=== PATIENT | male | born 1955 | race Caucasian/White ===

== ENCOUNTER 2020-07-30 10:30 | Inpatient (IN) | payer MEDICARE, OTHER ==
[~2020-07-30] VITALS: Ht 185.4 cm; Wt 98.4 kg
[~2020-07-30 10:30] MED LIST: IBU600 MG PO; KEFLEX500 MG PO; KEPPRA500 MG PO
[2020-07-30 12:19] LABS: HEMOGLOBIN 13.5 gm/dl (14.0-17.5); RED BLOOD COUNT 3.82 M/UL (4.20-5.50); WHITE BLOOD COUNT 3.7 K/UL (4.5-11.0)
[2020-07-30] MEDS ORDERED: ROPINIROLE HCL3 MG PO (15:06)
[2020-07-30] MEDS ORDERED: CYANOCOBAL1000 MCG/1 INJ (15:07)
[2020-07-30] MEDS ORDERED: OMEPRAZOLE20 MG PO (15:07)
[2020-07-30] MEDS ORDERED: TEGRETOL200 MG PO (15:08)
[2020-07-30] MEDS ORDERED: PRAVACHOL40 MG PO (15:08)
[2020-07-30] MEDS ORDERED: ESCITALOPRAM OXA5 MG PO (15:08)
[2020-07-30] MEDS ORDERED: VITAMIN D21250 MCG PO (15:09)
[2020-07-30] MEDS ORDERED: HYDROCODON-ACE1 EAC6 PO (15:09)
[2020-07-30] MEDS ORDERED: COZAAR100 MG PO (15:10)
[2020-07-30] MEDS ORDERED: PLAVIX 75 MG TA75 MG PO (15:10)
[2020-07-30] MEDS ORDERED: AMLODIPINE BESYL5 MG PO (15:10)
[2020-07-30] MEDS ORDERED: CYMBALTA60 MG PO (15:11)
[2020-07-31 04:06] LABS: HEMOGLOBIN 12.4 gm/dl (14.0-17.5); RED BLOOD COUNT 3.56 M/UL (4.20-5.50); WHITE BLOOD COUNT 3.1 K/UL (4.5-11.0)
[2020-08-01 04:48] LABS: WHITE BLOOD COUNT 2.1 K/UL (4.5-11.0)
[2020-08-01 04:49] LABS: RED BLOOD COUNT 3.14 M/UL (4.20-5.50)
[2020-08-02 05:31] LABS: HEMOGLOBIN 11.9 gm/dl (14.0-17.5); RED BLOOD COUNT 3.42 M/UL (4.20-5.50); WHITE BLOOD COUNT 2.3 K/UL (4.5-11.0)
[2020-08-02] MEDS ORDERED: HYDROCODON-ACE1 EAC6 PO ×2 (11:40→11:55)
[2020-08-02] MEDS ORDERED: CEFUROXIME250 MG PO (11:40)
== END 2020-08-02 19:52 | DRG 683 ==
LOC: ER1 10:30 → MED SURG 4 14:30 → CDU 14:30 → MED SURG 4 20:08
PROVIDERS: Family Medicine; ADMIT Internal Medicine
DX: N17.9 Acute kidney failure, unspecified (principal); N39.0 Urinary tract infection, site not specified; E87.1 Hypo-osmolality and hyponatremia; I69.351 Hemiplegia and hemiparesis following cerebral infarction affecting right dominant side; Z20.822 Contact with and (suspected) exposure to COVID-19; E87.6 Hypokalemia; B96.20 Unspecified Escherichia coli [E. coli] as the cause of diseases classified elsewhere; I10 Essential (primary) hypertension; Z91.81 History of falling; G40.909 Epilepsy, unspecified, not intractable, without status epilepticus; Z87.891 Personal history of nicotine dependence; Z81.8 Family history of other mental and behavioral disorders; Z83.3 Family history of diabetes mellitus; Z84.89 Family history of other specified conditions; Z79.02 Long term (current) use of antithrombotics/antiplatelets; Z79.899 Other long term (current) drug therapy
CPT/HCPCS: 0240U; 36415; 70450; 70551; 71045; 74230; 80048; 80053; 81001; 82550; 82553; 83605; 83735; 83874; 84439; 84443; 84484; 85025; 87077; 87086; 87186; 92526; 92610; 92611-GN; 93005; 93880; 96365; 96375; 97110; 97110-GP-CQ; 97162; 97166; 97530; 99285; J0696; J1644

== ENCOUNTER 2020-10-19 09:47 | Emergency (ER) | payer MEDICARE, OTHER ==
[~2020-10-19 09:47] MED LIST changes: +AMLODIPINE BESYL5 MG PO; +CEFUROXIME250 MG PO; +COZAAR100 MG PO; +CYANOCOBAL1000 MCG/1 INJ; +CYMBALTA60 MG PO; +ESCITALOPRAM OXA5 MG PO; +HYDROCODON-ACE1 EAC6 PO; +OMEPRAZOLE20 MG PO; +PLAVIX 75 MG TA75 MG PO; +PRAVACHOL40 MG PO; +ROPINIROLE HCL3 MG PO; +TEGRETOL200 MG PO; +VITAMIN D21250 MCG PO
[2020-10-19 11:06] LABS: HEMOGLOBIN 14.1 gm/dl (14.0-17.5); RED BLOOD COUNT 4.06 M/UL (4.20-5.50); WHITE BLOOD COUNT 4.9 K/UL (4.5-11.0)
[2020-10-19 11:27] LABS: BUN/CREATININE RATIO 13 (0-10)
== END 2020-10-19 17:04 | disposition other institution (70) ==
LOC: ER1 09:47
PROVIDERS: Emergency Medicine
DX: S42.302A Unspecified fracture of shaft of humerus, left arm, initial encounter for closed fracture (principal); S20.211A Contusion of right front wall of thorax, initial encounter; I10 Essential (primary) hypertension; E78.5 Hyperlipidemia, unspecified; Z86.73 Personal history of transient ischemic attack (TIA), and cerebral infarction without residual deficits; W01.0XXA Fall on same level from slipping, tripping and stumbling without subsequent striking against object, initial encounter; Y92.009 Unspecified place in unspecified non-institutional (private) residence as the place of occurrence of the external cause
CPT/HCPCS: 70450; 70486; 72125; 73030; 80053; 82550; 82553; 83874; 84484; 85025; 93005; 96374; 96375; 99284; J2270; J2405; J7030; Q9967

== ENCOUNTER 2021-02-25 16:25 | Emergency (ER) | payer MEDICARE, OTHER ==
[2021-02-25 17:50] LABS: HEMOGLOBIN 16.2 gm/dl (14.0-17.5); RED BLOOD COUNT 5.01 M/UL (4.20-5.50); WHITE BLOOD COUNT 10.1 K/UL (4.5-11.0)
[2021-02-25 18:12] LABS: BUN/CREATININE RATIO 15 (0-10)
== END 2021-02-25 19:55 | disposition home or self-care (01) ==
LOC: ER1 16:25
PROVIDERS: Physician Assistant
DX: S01.01XA Laceration without foreign body of scalp, initial encounter (principal); I10 Essential (primary) hypertension; Z86.73 Personal history of transient ischemic attack (TIA), and cerebral infarction without residual deficits; Z87.891 Personal history of nicotine dependence; W17.89XA Other fall from one level to another, initial encounter
CPT/HCPCS: 12002; 70450; 80053; 82550; 82553; 83874; 84484; 85025; 93005; 99283

== ENCOUNTER 2021-06-26 10:33 | Inpatient (IN) | payer MEDICARE, OTHER ==
[~2021-06-26] VITALS: Ht 185.4 cm; Wt 89.4 kg
[2021-06-26 11:40] LABS: HEMOGLOBIN 13.7 gm/dl (14.0-17.5); RED BLOOD COUNT 4.09 M/UL (4.20-5.50); WHITE BLOOD COUNT 10.3 K/UL (4.5-11.0)
[2021-06-26 12:19] LABS: BUN/CREATININE RATIO 28 (0-10)
[2021-06-26] MEDS ORDERED: HYDROCODON-ACE1 EAC6 PO (15:48)
[2021-06-26] MEDS ORDERED: ROPINIROLE HCL0.5 MG PO (15:55)
[2021-06-26 16:21] LABS: HEMOGLOBIN 13.3 gm/dl (14.0-17.5); RED BLOOD COUNT 4.05 M/UL (4.20-5.50); WHITE BLOOD COUNT 8.1 K/UL (4.5-11.0)
[2021-06-27 03:49] LABS: HEMOGLOBIN 12.8 gm/dl (14.0-17.5); RED BLOOD COUNT 3.86 M/UL (4.20-5.50); WHITE BLOOD COUNT 6.4 K/UL (4.5-11.0)
[2021-06-27] MEDS ORDERED: ATIVAN IV/IM2 MG/ML IVP (19:06)
[2021-06-27] MEDS ORDERED: KEPPRA (19:06)
[2021-06-27] MEDS ORDERED: rocephin (19:06)
[2021-06-27] MEDS ORDERED: FERROUS SULFAT325 M2 PO (19:06)
[2021-06-27] MEDS ORDERED: ACETAMINOPHEN325 MG PO (19:06)
--- NOTE | 2021-06-27 22:40 | NUR ---
PT REFUSED PADDED SIDERAIL PER SX PERCAUTIONS
[2021-06-28 05:14] LABS: HEMOGLOBIN 11.1 gm/dl (14.0-17.5); WHITE BLOOD COUNT 4.8 K/UL (4.5-11.0)
[2021-06-28 05:22] LABS: RED BLOOD COUNT 3.38 M/UL (4.20-5.50)
[2021-06-28 05:58] LABS: BUN/CREATININE RATIO 37 (0-10)
--- NOTE | 2021-06-28 07:47 | NUR ---
Spoke with reguarding keppra being dc and patient having seziure with in transport to hospital. stated it was okay with her to give it for now and she would call back later. Dr. Ruiz notified and new order noted.
[2021-06-28] MEDS ORDERED: HYDROCODON-ACE1 EAC6 PO (11:47)
[2021-06-28] MEDS ORDERED: LOVENOX30 MG/0.3 SQ (11:47)
[2021-06-29 05:42] LABS: HEMOGLOBIN 9.3 gm/dl (14.0-17.5); WHITE BLOOD COUNT 5.6 K/UL (4.5-11.0)
[2021-06-29 05:45] LABS: RED BLOOD COUNT 2.94 M/UL (4.20-5.50)
[2021-06-29 06:12] LABS: BUN/CREATININE RATIO 32 (0-10)
[2021-06-30 07:04] LABS: HEMOGLOBIN 8.5 gm/dl (14.0-17.5); RED BLOOD COUNT 2.74 M/UL (4.20-5.50); WHITE BLOOD COUNT 4.5 K/UL (4.5-11.0)
[2021-06-30 07:25] LABS: BUN/CREATININE RATIO 25 (0-10)
--- NOTE | 2021-06-30 18:04 | NUR ---
LATE ENTRY FOR 06/28/21. SPOKE WITH LEONARDA ABOUT PATIENT TRANSFER TO [facility] FOR NEURO EVALUATION. STATED SHE DID NOT WANT THE PATIENT TRANSFERRED TO ANOTHER FACILITY. EXPLAINED TO HER THAT WE DIDNT HAVE NEURO COVERAGE AT THIS TIME. CONTINUE TO REFUSE TRANSFER. NOTIFIED.
[2021-07-01 08:23] LABS: HEMOGLOBIN 9.4 gm/dl (14.0-17.5); RED BLOOD COUNT 2.89 M/UL (4.20-5.50); WHITE BLOOD COUNT 4.9 K/UL (4.5-11.0)
[2021-07-01 09:04] LABS: BUN/CREATININE RATIO 19 (0-10)
[2021-07-02 05:00] LABS: HEMOGLOBIN 9.3 gm/dl (14.0-17.5); RED BLOOD COUNT 2.82 M/UL (4.20-5.50); WHITE BLOOD COUNT 4.9 K/UL (4.5-11.0)
[2021-07-02 05:14] LABS: BUN/CREATININE RATIO 16 (0-10)
[2021-07-03 03:37] LABS: HEMOGLOBIN 9.5 gm/dl (14.0-17.5); RED BLOOD COUNT 2.87 M/UL (4.20-5.50); WHITE BLOOD COUNT 5.3 K/UL (4.5-11.0)
[2021-07-03 03:43] LABS: BUN/CREATININE RATIO 19 (0-10)
[2021-07-04] MEDS ORDERED: FERROUS SULFAT325 M2 PO (08:43)
[2021-07-04] MEDS ORDERED: KEPPRA500 MG PO (08:55)
[2021-07-04] MEDS ORDERED: HYDROCODON-ACE1 EAC6 PO ×2 (15:03→15:04)
== END 2021-07-04 18:55 | DRG 481 ==
LOC: ER1 10:33 → CDU 06-27 18:02 → MED SURG 4 06-27 18:02
PROVIDERS: Emergency Medicine; Internal Medicine; ADMIT Internal Medicine
PROC: B24BZZZ Ultrasonography of Heart with Aorta (ICD-10-PCS; 2021-06-27)
PROC: 0QSB06Z Reposition Right Lower Femur with Intramedullary Internal Fixation Device, Open Approach (ICD-10-PCS; 2021-06-28)
PROC: 4A10X4Z Monitoring of Central Nervous Electrical Activity, External Approach (ICD-10-PCS; principal; 2021-07-01)
DX: S72.401A Unspecified fracture of lower end of right femur, initial encounter for closed fracture (principal); N39.0 Urinary tract infection, site not specified; M62.82 Rhabdomyolysis; M97.11XA Periprosthetic fracture around internal prosthetic right knee joint, initial encounter; Z20.822 Contact with and (suspected) exposure to COVID-19; F17.200 Nicotine dependence, unspecified, uncomplicated; G40.909 Epilepsy, unspecified, not intractable, without status epilepticus; R53.81 Other malaise; I10 Essential (primary) hypertension; F32.9 Major depressive disorder, single episode, unspecified; L89.152 Pressure ulcer of sacral region, stage 2; Z91.14 Patient's other noncompliance with medication regimen; Z86.73 Personal history of transient ischemic attack (TIA), and cerebral infarction without residual deficits; Z82.0 Family history of epilepsy and other diseases of the nervous system; Z91.81 History of falling
CPT/HCPCS: ECHO; 0240U; 36415; 70450; 70551; 71045; 73552; 73562; 76000; 80048; 80053; 80307; 81001; 82550; 82553; 83036; 83540; 83550; 83605; 83735; 83874; 83880; 84100; 84484; 85025; 85027; 85652; 86140; 86850; 86900; 86901; 87040; 87086; 93005; 93306; 95819; 96374; 96375; 96376; 97110; 97116-GP-CQ; 97161; 97166; 97530; 97530-GP-CQ; 99285; A6212; C1713; J0690; J0696; J1100; J1170; J1650; J1953; J2001; J2270; J2405; J2704; J2710; J2795; J3010; J7120; U0002